=== PATIENT | male | born 1975 | race Caucasian/White ===

== ENCOUNTER 2022-12-02 06:14 | Outpatient (REF) | payer OTHER, SELFPAY ==
[2022-12-02 11:26] LABS: MANUAL DIFF FLAG NO
[2022-12-02 11:52] LABS: Basophils Percent Auto 0.4 % (0-2); Eosinophils Absolute Auto 0.1 X10*3/uL (0.0-0.4); Eosinophils Percent Auto 1.6 % (0-4); Hematocrit 45.9 % (42.0-52.0); Hemoglobin 15.7 g/dl (14.0-18.0); Imm Gran Abs Auto 0.01 X10*3/uL (0.00-0.03); Imm Gran Pct Auto 0.1 % (0.0-0.4); Lymphocytes Percent Auto 44.8 % (20-40); Mean Corpuscular HGB Conc 34.2 g/dl (31.0-36.0); Mean Corpuscular Hemoglobin 29.6 pg (27.0-33.0); Mean Corpuscular Volume 86.4 fL (80.0-98.0); Mean Platelet Volume 9.5 fL (9.4-12.4); Monocytes Absolute Auto 0.6 X10*3/uL (0.1-1.2); Monocytes Percent Auto 9.3 % (2-11); Neutrophils Absolute Auto 2.9 x10*3/uL (2.0-8.3); Neutrophils Percent Auto 43.8 % (45-73); Platelet Count 250 X10*3/uL (160-400); Red Blood Count 5.31 X10*6/uL (4.60-5.80); Red Cell Distribution Width 12.2 % (11.0-16.0); White Blood Count 6.7 X10*3/uL (4.8-10.8)
[2022-12-02 12:45] LABS: Alanine Aminotransferase 27 U/L (0-40); Albumin Level 4.4 g/dL (3.5-5.0); Alkaline Phosphatase 66 U/L (39-117); Anion Gap 11 (12-20); Aspartate Amino Transferase 19 U/L (5-37); Bilirubin Total 0.9 mg/dL (0.0-1.0); Blood Urea Nitrogen 16 mg/dL (9-16); Calcium 9.1 mg/dL (8.4-10.2); Carbon Dioxide 27 mmol/L (22-29); Chloride 107 mmol/L (96-108); Cholesterol 236 mg/dL; Estimated Glomerular Filt Rate > 60; Glucose Fasting 98 mg/dL (60-99); HDL Cholesterol 40 mg/dL; LDL Cholesterol Calculated 175 mg/dl; Potassium 4.2 mmol/L (3.3-5.1); Sodium 141 mmol/L (135-145); TSH reflex Free T4 1.94 uIU/mL (0.32-4.0); Total Protein 7.2 g/dL (6.5-8.0); Triglycerides 107 mg/dL
== END 2022-12-02 06:15 | disposition home or self-care (01) ==
LOC: HO.HMGCLDS 06:14
PROVIDERS: PCP Internal Medicine; Visit Provider Internal Medicine
DX: Z00.00 Encounter for general adult medical examination without abnormal findings (principal); E78.5 Hyperlipidemia, unspecified; I10 Essential (primary) hypertension
CPT/HCPCS: 36415; 80053; 80061; 84443; 85025

== ENCOUNTER 2022-12-03 09:01 | Outpatient (REF) | payer OTHER, SELFPAY ==
--- NOTE | ~2022-12-03 | XR_ITS ---
EXAMINATION: XR LUMBOSACRAL SPINE CLINICAL INFORMATION: Radiculopathy lumbar region. COMPARISON: None TECHNIQUE: Three views of the lumbosacral spine. FINDINGS: There is normal lumbar lordosis. The vertebral heights and alignment is normal. There is loss of L5-S1 disc height. Rest of the disc heights are normal. No visible acute fracture, dislocation or subluxation seen. No lytic or sclerotic process seen. The paravertebral soft tissues are normal. XR/XR lumbar spine 2-3V IMPRESSION: Degenerative disc changes L5-S1 disc level. No visible acute fracture, dislocation or lytic process seen.
== END 2022-12-03 09:02 | disposition home or self-care (01) ==
LOC: HO.HMGCX 09:01
PROVIDERS: PCP Internal Medicine; Visit Provider Internal Medicine
DX: M54.16 Radiculopathy, lumbar region (principal)
CPT/HCPCS: 72100

== ENCOUNTER 2022-12-28 09:42 | Outpatient (REF) | payer OTHER, SELFPAY ==
[2022-12-28 12:45] LABS: Anion Gap 14 (12-20); Blood Urea Nitrogen 15 mg/dL (9-16); Calcium 9.5 mg/dL (8.4-10.2); Carbon Dioxide 26 mmol/L (22-29); Chloride 106 mmol/L (96-108); Estimated Glomerular Filt Rate > 60; Glucose Random 98 mg/dL (60-115); Magnesium 2.2 mg/dL (1.6-2.6); Potassium 4.8 mmol/L (3.3-5.1); Sodium 141 mmol/L (135-145)
[2022-12-28 13:03] LABS: TSH reflex Free T4 1.08 uIU/mL (0.32-4.0)
[2023-01-04 17:08] LABS: Cortisol, Free 0.29 mcg/dL
[2023-01-07 17:34] LABS: Aldosterone/Renin Ratio 10.8 Ratio (0.9-28.9); Plasma Renin Activity 0.74 ng/mL/h (0.25-5.82)
== END 2022-12-28 09:43 | disposition home or self-care (01) ==
LOC: HO.HMGCLDS 09:42
PROVIDERS: PCP Internal Medicine; Visit Provider Internal Medicine
DX: E78.5 Hyperlipidemia, unspecified (principal); I10 Essential (primary) hypertension
CPT/HCPCS: 36415; 80048; 82088; 82530; 83735; 84443

== ENCOUNTER → 2023-01-16 07:50 | Outpatient (REF) | payer OTHER, SELFPAY ==
--- NOTE | 2023-01-16 07:57 | HM_ITS ---
* Total monitoring time 3 days. * Underlying rhythm is sinus. Average ventricular rate 79/Min. Range 49 to 109/Min. * Frequent ventricular ectopy. Dorsey of 14%. Occasional bigeminy and trigeminy. 3 morphologies. One run of 4 beats. * Rare supraventricular ectopy. * No significant pauses or AV blocks. * No patient markers or events in diary. MTDD
--- NOTE | 2023-01-16 07:57 | CA_ITS ---
Transthoracic Echocardiogram Patient (Last, First, Middle): Phillip Valle S Gender: Male Date of : 1975 Age: 47 Procedure Date: 01/16/2023 Procedure Type: Transthoracic Echocardiogram Location: OP Height: 180.34 cm Weight: 104.33 kg BSA: 2.24 m2 Heart Rate: bpm BP: 130 / 92 mmHg Pyridine Operator: ANA M Referring MD: Krystin Barajas MD [facility] Coordinator: Jarad Carballo MD Symptoms: G47.30 - Sleep apnea, unspecified Study Quality: Adequate ECG Rhythm: Sinus Conclusions: - Essentially normal study Findings Left Ventricle Normal left ventricular size, thickness, and systolic function. The visually estimated ejection fraction is between 55-60%. Diastolic function is normal for age. Peak GLS is -18.9%, within normal limits. Right Ventricle Normal right ventricular cavity size and systolic function. Atria The left atrium is mildly dilated. Interatrial shunt cannot be excluded. The right atrium is normal in size. Aortic Valve The aortic valve structure and function is likely normal. There is no aortic valve stenosis. There is no aortic valve regurgitation. Mitral Valve Normal mitral valve structure and function. There is trace mitral valve regurgitation. There is no mitral valve stenosis. Pulmonic Valve The pulmonic valve was not well visualized. Tricuspid Valve Normal tricuspid valve structure. There is trace tricuspid valve regurgitation. The right ventricular systolic pressure is normal. The right ventricular systolic pressure is 25 mmHg. Normal right atrial pressure. There is no evidence of pulmonary hypertension. Great Vessels All visible segments of the aorta are normal in size. The pulmonary artery was not well visualized. Venous The inferior vena cava is normal in size and collapses greater than 50% with inspiration. Pericardium/Pleural There is no evidence of pericardial effusion. Prior Study Comparison No prior study available for comparison. Measurements 2D Linear Measurements IVSd: 0.96 0.6-0.9/0.6-1.0 cm LVIDd: 5.69 3.9-5.3/4.2-5.9 cm LVIDd Index: 2.54 2.4-3.2/2.2-3.1 cm/m2 LVIDs: 3.45 2.0-3.6 cm LVPWd: 0.88 0.7-1.1 cm LA Diam: 3.80 2.7-3.8/3.0-4.0 cm LAIDs Index: 1.70 1.5-2.3 cm/m2 LV Mass: 253.33 67-162/88-224 g LV Mass Index: 113.09 43-95/49-115 g/m2 LVOT Diam: 2.10 3.0+(-)1.3 cm 2D Systolic Function EF 4C: 58.00 >55% EF 2C: 50.10 >55% Mitral Valve MV Pk E: 0.93 MV PK A: 0.75 MV Decel Time: 168.00 E/A: 1.30 E'Lateral: 12.10 E'Medial: 8.49 E/E' Med: 11.00 E/E' Lat: 7.70 PHT: 49.00 MVA PHT: 4.49 Decel [place]: 5.55 Aortic Valve AoV Pk Jamal: 1.23 AoV Mn Jamal: 0.86 AoV VTI: 0.28 AoV Pk Grad: 6.00 Aov Mn Grad: 3.00 JASPER Cont.VTI: 3.01 LVOT LVOT Pk Jamal: 1.14 LVOT Mn Jamal: 0.70 LVOT VTI: 0.24 LVOT Pk Grad: 5.00 LVOT Mn Grad: 2.00 LVOT Diam: 2.10 LVOT Area: 3.46 Diastolic Function MV Pk E: 0.93 MV Pk A: 0.75 E/A: 1.30 E'Medial: 8.49 E/E' Med: 11.00 E' Laterial: 12.10 E/E' Lat: 7.70 Right Ventricle TAPSE (mm): 21.90 TVS' Jamal: 12.30 Tricuspid Valve TR Pk Jamal: 2.04 TR Pk Grad: 17.00 RA Press: 8.00 RVSP: 25.00 Great Vessels Aorta Sinus of Valsalva: 3.74 2.0-3.[address] [place]: 2.94 1.7-3.4 cm Ao Asc: 3.50 2.1-3.4 cm Updated in Other Vendor System with Status of Final Jarad Carballo MD electronically signed on 01/16/2023 4:29:45 PM with status of Final
== END ==
LOC: HO.CARD 07:50
PROVIDERS: PCP Internal Medicine; Visit Provider Internal Medicine
DX: I10 Essential (primary) hypertension (principal); I49.9 Cardiac arrhythmia, unspecified
CPT/HCPCS: 93225; 93306; 93356

== ENCOUNTER 2023-03-22 06:03 | Outpatient (REF) | payer OTHER, SELFPAY ==
[2023-03-22 11:57] LABS: Alanine Aminotransferase 32 U/L (0-40); Albumin Level 4.3 g/dL (3.5-5.0); Alkaline Phosphatase 62 U/L (39-117); Anion Gap 13 (12-20); Aspartate Amino Transferase 23 U/L (5-37); Bilirubin Total 1.2 mg/dL (0.0-1.0); Blood Urea Nitrogen 15 mg/dL (9-16); Calcium 9.5 mg/dL (8.4-10.2); Carbon Dioxide 26 mmol/L (22-29); Chloride 105 mmol/L (96-108); Cholesterol 224 mg/dL; Estimated Glomerular Filt Rate > 60; Glucose Fasting 82 mg/dL (60-99); HDL Cholesterol 41 mg/dL; LDL Cholesterol Calculated 162 mg/dl; Sodium 140 mmol/L (135-145); Total Protein 7.5 g/dL (6.5-8.0); Triglycerides 109 mg/dL
== END 2023-03-22 06:04 | disposition home or self-care (01) ==
LOC: HO.HMGCLDS 06:03
PROVIDERS: PCP Internal Medicine; Visit Provider Internal Medicine
DX: E78.5 Hyperlipidemia, unspecified (principal); I10 Essential (primary) hypertension
CPT/HCPCS: 36415; 80053; 80061

== ENCOUNTER 2023-09-29 06:24 | Outpatient (REF) | payer OTHER, SELFPAY ==
--- NOTE | ~2023-09-29 | XR_ITS ---
EXAMINATION: XR KNEE, LEFT CLINICAL INFORMATION: Left knee pain. COMPARISON: None available. TECHNIQUE: Four views of the left knee. FINDINGS: There is no evidence of acute fracture or dislocation of the left knee. There is a left knee effusion present. Joint spaces are maintained. There appears to be some edema about the patella tendon. XR/XR knee LT 4V IMPRESSION: No bony abnormality of the left knee identified. Left knee effusion.
[2023-09-29 11:35] LABS: Alanine Aminotransferase 30 U/L (0-40); Albumin Level 4.4 g/dL (3.5-5.0); Alkaline Phosphatase 57 U/L (39-117); Anion Gap 10 (12-20); Aspartate Amino Transferase 24 U/L (5-37); Bilirubin Total 0.8 mg/dL (0.0-1.0); Blood Urea Nitrogen 18 mg/dL (9-16); Calcium 9.2 mg/dL (8.4-10.2); Carbon Dioxide 27 mmol/L (22-29); Chloride 107 mmol/L (96-108); Cholesterol 221 mg/dL (<200); Estimated Glomerular Filt Rate > 60; Glucose Fasting 96 mg/dL (60-99); HDL Cholesterol 36 mg/dL (>40); LDL Cholesterol Calculated 157 mg/dL (<100); Potassium 4.3 mmol/L (3.3-5.1); Sodium 140 mmol/L (135-145); Total Protein 7.7 g/dL (6.5-8.0); Triglycerides 140 mg/dL (<150)
== END 2023-09-29 06:25 | disposition home or self-care (01) ==
LOC: HO.HMGCLDS 06:24
PROVIDERS: PCP Internal Medicine; Visit Provider Internal Medicine
DX: I49.9 Cardiac arrhythmia, unspecified (principal); E78.5 Hyperlipidemia, unspecified; I10 Essential (primary) hypertension; M54.30 Sciatica, unspecified side; M25.562 Pain in left knee
CPT/HCPCS: 36415; 73564; 80053; 80061

== ENCOUNTER 2023-09-29 09:51 | Outpatient (AMB) | payer OTHER, SELFPAY ==
[2023-09-29 09:54] VITALS: BP 140/86; PULSE 76; O2SAT 98; BMI 32.7
--- NOTE | 2023-09-29 09:54 | MHC.PC.OV ---
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: No Accompanied by: Self / Same As Patient Allergies amoxicillin or augmentin Allergy (Unknown, Uncoded 09/29/23 09:55) Rash Medication List - Last Reconciled 09/29/23 by Krystin Barajas MD metoprolol succinate ER 25 mg PO DAILY olmesartan 20 mg PO DAILY Tobacco use date assessed: 09/29/23 Dental Screening Dental Screen Date: 09/29/23 Did you have a dental visit in the last 12 months?: Yes Did you have a dental problem in the last 6 months where you did not have access to dental care?: No Was dental information given to patient?: Patient has dentist HPI 6m htn HPI Details Pt presents for f/u HTN. Pt c/o L knee pain behind for 3 weeks. Pt c/o persistent lower back pain radiating RLE and right lower extremity weakness and decreased calf muscle bulk. PFSH Family History Father Hypertension Mother Dementia Alzheimer disease Social History Housing: House Patient Tobacco Use Status: Never used Tobacco e-Cigarette/Vaping Use: Never Used Current occupational status: employed Cognitive needs: No Hearing needs: No Vision needs: No Questionnaire Thrive Questionnaire Date Thrive assessed: 11/23/22 HENRI-7 AMB Questionnaire HENRI-7 Date HENRI - 7 assessed: 11/23/22 Source: Developed by Drs. Jaylan Whiteside, Jany Bartlett, Arnol Good and colleagues, with an educational greg from [employer]. Review of Systems Const All systems reviewed & are unremarkable except as noted in HPI and below Reports no additional complaints Eyes Reports no additional complaints ENT Reports no additional complaints Card Reports no additional complaints Resp Reports no additional complaints GI Reports no additional complaints Reports no additional complaints Physical exam (Primary Care) Vital Signs: Last Vital Signs Pulse 76 09/29/23 09:54 BP 140/86 H 09/29/23 09:54 Pulse Ox 98 09/29/23 09:54 Oxygen Delivery Method Room Air 09/29/23 09:54 BMI result Body Mass Index 32.7 Tobacco/Smoking Status: Tobacco use Status Tobacco use date assessed 09/29/23 09/29/23 09:55 Patient Tobacco Use Status Never used Tobacco 09/29/23 09:55 e-Cigarette/Vaping Use Never Used 09/29/23 09:55 Thrive Assessment: Date of Thrive Assessment Date Thrive assessed 11/23/22 09/29/23 09:55 Const General: no acute distress HENMT General nose exam: Normal external nose present Throat: Yes posterior oropharynx normal Neck Neck: Yes no lymphadenopathy and Yes supple Resp Effort & Inspection: normal respiratory effort Auscultation: clear to auscultation bilaterally Cardio Rhythm: regular rhythm Heart sounds: S1 normal heart sound present and S2 normal heart sound present GI Inspection: Yes normal to inspection Extrem Other: Motor strength 4 to 5/5 right distal lower extremity, 5/5 for right proximal lower extremity, there is a smaller right calf circumference comparing to left, deep tendon reflexes +1 bilaterally. Left knee with full range of motion no joint tenderness or sore Assessment and Plan Assessment & Plan (1) Sciatica: Code(s): M54.30 - Sciatica, unspecified side Plan: For chronic sciatica with right lower extremity weakness and decrease muscle bulk MRI of lumbar spine and EMG will be obtained. Patient will be referred to neurology (2) Right leg weakness: Code(s): R29.898 - Other symptoms and signs involving the musculoskeletal system (3) Hyperlipidemia: Code(s): E78.5 - Hyperlipidemia, unspecified Plan: Low cholesterol diet (4) HTN (hypertension): Code(s): I10 - Essential (primary) hypertension Plan: Increase olmesartan to 40 mg a day (5) Knee pain, left: Code(s): M25.562 - Pain in left knee Plan: Check x-ray and PT was recommended but patient declined Orders: Orders NE electromyogram (EMG) Today R29.898 - Other symptoms and signs involving the musculoskeletal system MR lumbar spine wo con Today M54.30 - Sciatica, unspecified side Comprehensive [place]. Panel Fast 6 Weeks I10 - Essential (primary) hypertension Referrals Neurology Referral R29.898 - Other symptoms and signs involving the musculoskeletal system Medications: New olmesartan 40 mg PO DAILY 90 tabs 0RF Discontinued olmesartan Discontinued Reason: Doctor's Order 20 mg PO DAILY 90 tabs 3RF Coding Level of Care Code Est Pt Level 4 (59758) Diagnoses Sciatica M54.30 Right leg weakness R29.898 Hyperlipidemia E78.5 HTN (hypertension) I10 Knee pain, left M25.562
== END 2023-09-29 11:39 | disposition home or self-care (01) ==
PROVIDERS: PCP Internal Medicine; Visit Provider Internal Medicine
DX: M54.30 Sciatica, unspecified side (principal); R29.898 Other symptoms and signs involving the musculoskeletal system; E78.5 Hyperlipidemia, unspecified; I10 Essential (primary) hypertension; M25.562 Pain in left knee
CPT/HCPCS: 99214

== ENCOUNTER 2023-10-04 09:32 | Outpatient (AMB) | payer OTHER, SELFPAY ==
[2023-10-04 10:36] VITALS: BP 170/100; PULSE 99; TEMP 36.3; O2SAT 98; BMI 33.9
--- NOTE | 2023-10-04 10:36 | MHC.OFFWIV ---
Intake Vital Signs 10/04/23 10:36 Height 5 ft 10.8 in Weight 242 lb BMI 33.9 BP 170/100 H Blood Pressure Location Lt brachial Position Sitting Pulse 99 Pulse Source Pulse Oximeter Temp 97.4 F Temp Source Temporal Artery Scan Pulse Oximetry (%) 98 Oxygen Delivery Method Room Air Intake Visit Reasons: EP Lft foot/ankle swollen [id number] Intake Note: pt is here today for lft foot ankle swollen started 3 weeks ago Patient Tobacco Use Status: Never used Tobacco Allergies amoxicillin or augmentin Allergy (Unknown, Uncoded 09/29/23 09:55) Rash Do you need a note to return to daycare/school/sports/work: Yes HPI EP Lft foot/ankle swollen [id number] HPI Details This patient presents today with left calf swelling and pain. He reports this started about 2-3 weeks ago just with pain behind his left knee. Now he reports it has worsened, and his left calf is swollen and tight. Denies any injury to area. No recent travel. He saw his PCP on 09/29 and at that time only had the posterior left knee pain - XR showed a knee effusion. Denies any shortness of breath. [facility] Family History Father Hypertension Mother Dementia Alzheimer disease Social History Housing: House Patient Tobacco Use Status: Never used Tobacco e-Cigarette/Vaping Use: Never Used Current occupational status: employed Cognitive needs: No Hearing needs: No Vision needs: No Review of Systems Const All systems reviewed & are unremarkable except as noted in HPI and below Physical Exam Vital Signs: Last Vital Signs Temp 97.4 F 10/04/23 10:36 Pulse 99 10/04/23 10:36 BP 170/100 H 10/04/23 10:36 Pulse Ox 98 10/04/23 10:36 Oxygen Delivery Method Room Air 10/04/23 10:36 BMI result Body Mass Index 33.9 Const General: cooperative and no acute distress Resp Effort & Inspection: normal respiratory effort Auscultation: clear to auscultation bilaterally Cardio Palpation: normal PMI Rate: regular rate Rhythm: regular rhythm Extrem Other: Left calf in tight and swollen. Calf circumference on left is 46cm, compared to 40cm on the right. Homans sign is positive. Tenderness to palpation. No excessive warmth or redness. Distal pedal/post tibial pulses present/strong. Normal cap refill. No distal edema. Psych Appearance: grossly normal Mental Status: mental status grossly normal Speech and movement: Normal speech and movement present Assessment & Plan Assessment & Plan (1) Pain and swelling of left lower leg: Code(s): M79.662 - Pain in left lower leg; M79.89 - Other specified soft tissue disorders Plan: Left calf enlarged, tight, and tender to palpation. Venous duplex US ordered of the LE. US results: No DVT, however there is a complex fluid collection in the upper calf with echogenic and hypoechoic area which is nonvascular and may be reflective of a muscular hematoma measuring approximately 3.8 x 10.0 x 6.5 cm. Recommendations are to repeat u/s in 5-7 days in symptoms persist. I have informed patient of above results and he will f/u with [place] [facility] or PCP as needed if symptoms persist. In the interim, I will start patient on antiinflammatories and muscle relaxers for this. We reviewed indications, use, possible s/e of medications. If he develops worsening pain, swelling, or develops other symptoms, he should go to the emergency department for further evaluation. He verbalizes understanding and agrees to plan. Orders: Orders US venous duplex LE LT Today M79.662 - Pain in left lower leg, M79.89 - Other specified soft tissue disorders Medications: New cyclobenzaprine 10 mg PO TID 5 days PRN 15 tabs 0RF muscle spasm meloxicam 15 mg PO DAILY 7 days 7 tabs 0RF M79.662 - Pain in left lower leg, M79.89 - Other specified soft tissue disorders Coding Level of Care Code Est Pt Level 3 (85740) Diagnoses Pain and swelling of left lower leg M79.662; M79.89
== END 2023-10-04 11:13 | disposition home or self-care (01) ==
PROVIDERS: PCP Internal Medicine; Visit Provider Nurse Practitioner Family
DX: M79.662 Pain in left lower leg (principal); M79.89 Other specified soft tissue disorders
CPT/HCPCS: 99213

== ENCOUNTER 2023-10-04 11:21 | Outpatient (REF) | payer OTHER, SELFPAY ==
--- NOTE | ~2023-10-04 | US_ITS ---
EXAMINATION: US VENOUS ULTRASOUND WITH DOPPLER LOWER EXTREMITY, LEFT CLINICAL INFORMATION: Pain COMPARISON: None available. TECHNIQUE: Ultrasound of the deep veins is performed from the hip to the calf with compression sonography and color and pulse Doppler assessment. Spectral analysis with color-flow imaging is performed. FINDINGS: There is normal venous compression and respiratory variation and augmented flow. The visualized common femoral vein, superficial femoral vein, profunda femoral vein, popliteal vein, and the trifurcation region shows no evidence of deep venous thrombosis. There is no significant popliteal fossa cyst. The left peroneal vein was not well seen due to calf swelling. Some soft tissue swelling and edema was noted in the region of the popliteal fossa. There is a complex fluid collection in the upper calf with echogenic and hypoechoic area which is nonvascular and may be reflective of a muscular hematoma measuring approximately 3.8 x 10.0 x 6.5 cm. If the patient's symptoms persist, followup ultrasound in 5 days 7 days might be of value to exclude proximal propagation from a non-visualized calf vein. US/US venous duplex LE LT IMPRESSION: No DVT demonstrated in the left lower extremity. Apparent calf hematoma.
== END 2023-10-04 11:22 | disposition home or self-care (01) ==
LOC: HO.HMGCX 11:21
PROVIDERS: PCP Internal Medicine; Visit Provider Internal Medicine
DX: M79.662 Pain in left lower leg (principal); M79.89 Other specified soft tissue disorders
CPT/HCPCS: 93971

== ENCOUNTER 2023-10-12 07:50 | Outpatient (REF) | payer OTHER, SELFPAY | END 2023-10-12 07:51 | disposition home or self-care (01) | LOC: HO.NEURO 07:50 | PROVIDERS: PCP Internal Medicine; Visit Provider Internal Medicine | DX: Z13.89 Encounter for screening for other disorder (principal) ==

== ENCOUNTER 2023-10-23 10:00 | Outpatient (REF) | payer OTHER, SELFPAY ==
--- NOTE | ~2023-10-23 | XR_ITS ---
EXAMINATION: XR KNEE AP STANDING CLINICAL INFORMATION: Left knee pain COMPARISON: 09/29/2023 TECHNIQUE: AP bilateral standing view of the knees and left sunrise view FINDINGS: On standing knee view, knee joints are symmetrical in position. Bilateral moderate medial knee joint narrowings, left greater than right. No left patellofemoral narrowing. No fracture or dislocation recognized. XR/XR knee LT 1V IMPRESSION: Degenerative changes. No acute bony pathology.
--- NOTE | ~2023-10-23 | XR_ITS ---
EXAMINATION: XR KNEE AP STANDING CLINICAL INFORMATION: Left knee pain COMPARISON: 09/29/2023 TECHNIQUE: AP bilateral standing view of the knees and left sunrise view FINDINGS: On standing knee view, knee joints are symmetrical in position. Bilateral moderate medial knee joint narrowings, left greater than right. No left patellofemoral narrowing. No fracture or dislocation recognized. XR/XR knee standing BI IMPRESSION: Degenerative changes. No acute bony pathology.
== END 2023-10-23 10:01 | disposition home or self-care (01) ==
LOC: HO.HOSX 10:00
PROVIDERS: Visit Provider Physician Assistant
DX: S80.12XA Contusion of left lower leg, initial encounter (principal); M25.561 Pain in right knee; R60.0 Localized edema
CPT/HCPCS: 73560; 73565; 99202

== ENCOUNTER 2023-10-23 10:14 | Outpatient (AMB) | payer OTHER, SELFPAY ==
--- NOTE | 2023-10-23 10:32 | A.OFFVIS_ITS ---
Intake Intake Visit Reasons: BLOOD TYPER-pain in the left knee Intake Note: Phillip connolly 48 year old male presents today as a new patient for an evaluation of left knee pain. Patient reports pain and swelling started at the end of September. States pain located at the posterior aspect of knee that radiates down to his calf. His swelling has improved however swelling is still present. He was seen at walk in clinic where an US was ordered. Denies injury. Allergies amoxicillin or augmentin Allergy (Unknown, Uncoded 09/29/23 09:55) Rash HPI BLOOD TYPER-pain in the left knee HPI Details 48-year-old male who presents to the off ice today for evaluation of left knee pain since October 04 2023. He states he has pain and swelling at the posterior aspect of his knee which radiates down to his calf. He also c/o a sharp pain with bending down. He was seen at walk in clinic where US was ordered and he was prescribed meloxicam and a cream which he discontinued to take. He uses ibuprofen and icing for his knee. 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 Cognitive needs: No Hearing needs: No Vision needs: No Review of Systems Const All systems reviewed & are unremarkable except as noted in HPI and below Physical Exam Const General: cooperative, healthy appearing, comfortable, no acute distress, well developed and alert Orientation/consciousness: patient oriented x3 HEENT Head: Yes normal to inspection, Yes normocephalic and Yes atraumatic Eyes General: appearance normal, both eyes and all related structures Resp Effort & Inspection: normal respiratory effort and able to speak in complete sentences Cardio Rate: regular rate Peripheral pulses: Peripheral pulses 2+ throughout GI Palpation (GI): Soft to palpation Skin Lesions: no lesions Rashes: no rashes Neuro General: patient oriented x3 Extrem Other: LLE: Hematoma present on the left medial side of gastroc. No fluctuance. No tenderness to palpation. No muscle deformity. No ecchymosis. NVI. Assessment & Plan Assessment & Plan (1) Hematoma of lower leg: Code(s): S80.10XA - Contusion of unspecified lower leg, initial encounter Plan We discussed the findings on the US with him today which is significant for muscular hematoma of 3 x 10 x 6 cm. He will also begin physical therapy to work on some ROM, stretching and edema control techniques. He will resume activities as tolerated. I did explain that this may take up 6-8 weeks for full recovery and if symptoms persist or worsens, patient will contact the office, otherwise follow-up as needed. Orders: Orders XR knee standing BI Today M25.561 - Pain in right knee, M25.562 - Pain in left knee XR knee LT 1V Today M25.562 - Pain in left knee PT Evaluation and Treatment Today S80.10XA - Contusion of unspecified lower leg, initial encounter Patient Instructions: Scribed for Ricky Florse PA-C, by Won Stanley, medical grade shoemaker, on 10/23/2023 at 10:30 AM EST. I, Ricky Flores PA-C, have personally reviewed and agree with the information entered by the scribe. Coding Level of Care Code New Pt Level 3 (24511) Diagnoses Hematoma of lower leg S80.10XA
== END 2023-10-23 11:13 | disposition home or self-care (01) ==
PROVIDERS: PCP Internal Medicine; Visit Provider Physician Assistant
DX: S80.12XA Contusion of left lower leg, initial encounter (principal)
CPT/HCPCS: 99203

== ENCOUNTER 2023-11-30 07:31 | Outpatient (AMB) | payer OTHER, SELFPAY ==
[2023-11-30 07:33] VITALS: BP 130/80; PULSE 86; O2SAT 98; BMI 32.3
--- NOTE | 2023-11-30 07:33 | A.OFFPC_ITS ---
Vital Signs 11/30/23 07:33 Height 5 ft 10.8 in Weight 230 lb BMI 32.3 BP 130/80 Blood Pressure Location Lt brachial Position Sitting Pulse 86 Pulse Source Pulse Oximeter Pulse Oximetry (%) 98 Oxygen Delivery Method Room Air Intake Visit Reasons: Annual PE Intake Note: Pt is here today for PE. Allergies amoxicillin or augmentin Allergy (Unknown, Uncoded 11/30/23 07:51) Rash Tobacco use date assessed: 11/30/23 Dental Screening Dental Screen Date: 11/30/23 Did you have a dental visit in the last 12 months?: Yes Did you have a dental problem in the last 6 months where you did not have access to dental care?: No Was dental information given to patient?: Patient has dentist HPI Annual PE HPI Details Pt presents for PE. Pt developed L calf swelling 2 months ago and went to ER. US was c/w with hematoma and swelling is getting better. 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 1. Little interest or pleasure in doing things: not at all 2. Feeling down, depressed, or hopeless: not at all 3. Trouble falling or staying asleep, or sleeping too much: not at all 4. Feeling tired or having little energy: not at all 5. Poor appetite or overeating: not at all 6. Feeling bad about yourself - or that you are a failure or have let yourself or your family down: not at all 7. Trouble concentrating on things, such as reading the newspaper or watching t elevision: not at all 8. Moving or speaking so slowly that other people could have noticed. Or the opposite - being so fidgety or restless that you have been moving around a lot more than usual: not at all 9. Thoughts that you would be better off or of hurting yourself in some way: not at all Total score: 0 Depression Screening Interpretation: Negative Depression Screening Done: Yes Source: Developed by Drs. Jaylan Whiteside, Jany Bartlett, Arnol Good and colleagues, with an educational greg from [employer]. Thrive Questionnaire Date Thrive assessed: 11/30/23 I am a: Patient What is your living situation today?: I have a steady place to live Within the past 12 months, did the food you bought not last and you didn't have the money to get more?: Never true Within the past 12 months, did you worry whether your food would run out before you got money to buy more?: Never true Do you have trouble paying for medicines?: No Do you have trouble getting transportation to medical appointments?: No Do you have trouble paying your heating and electricity bill?: No Do you have trouble taking care of your child, family member or friend?: No Do you have trouble with day-to-day activities such as bathing, preparing meals, shopping, managing finances, etc.?: No Are you currently unemployed and looking for a job?: No Are you interested in more education?: No Please select the resources that you would like help with: None THRIVE Score: 0 AUDIT C Alcohol Use Questionnaire (AUDIT-C) 1. How often do you have a drink containing alcohol?: Never 3. How often do you have six or more drinks on one occasion?: Never Total Score: 0 HENRI-7 AMB Questionnaire HENRI-7 Date HENRI - 7 assessed: 11/30/23 Feeling nervous, anxious, or on edge: 0 = Not at all Not being able to stop or control worryin = Not at all Worrying too much about different things: 0 = Not at all Trouble relaxin = Not at all Being so restless that it is hard to sit still: 0 = Not at all Becoming easily annoyed or irritable: 0 = Not at all Feeling afraid as if something awful might happen: 0 = Not at all Total HENRI-7 score (0-4 normal; 5-9 mild; 10-14 moderate; 15-21 severe): 0 Source: Developed by Jany Little B.W. Dhruv, Arnol Good and colleagues, with an educational greg from [employer]. Review of Systems Const All systems reviewed & are unremarkable except as noted in HPI and below Reports no additional complaints Eyes Reports no additional complaints ENT Reports no additional complaints Card Reports no additional complaints Resp Reports no additional complaints GI Reports no additional complaints Reports no additional complaints Physical exam (Primary Care) Vital Signs: Last Vital Signs Pulse 86 11/30/23 07:33 BP 130/80 11/30/23 07:33 Pulse Ox 98 11/30/23 07:33 Oxygen Delivery Method Room Air 11/30/23 07:33 BMI result Body Mass Index 32.3 Tobacco/Smoking Status: Tobacco use Status Tobacco use date assessed 11/30/23 11/30/23 07:54 Patient Tobacco Use Status Never used Tobacco 11/30/23 07:34 e-Cigarette/Vaping Use Never Used 11/30/23 07:34 PHQ-9: PHQ-9 Score PHQ-9: Total score 0 11/30/23 07:57 Depression Screening Interpretation: Negative Thrive Assessment: Date of Thrive Assessment Date Thrive assessed 11/30/23 11/30/23 07:57 Const General: no acute distress HENMT Head: Yes normal to inspection Ears: hearing grossly normal bilaterally General nose exam: Normal external nose present Throat: Yes posterior oropharynx normal Eyes General: appearance normal, both eyes and all related structures Neck Neck: Yes no lymphadenopathy and Yes supple Resp Effort & Inspection: normal respiratory effort Auscultation: clear to auscultation bilaterally Cardio Rhythm: regular rhythm Heart sounds: S1 normal heart sound present and S2 normal heart sound present GI Inspection: Yes normal to inspection Palpation (GI): Soft to palpation Percussion: Yes normal to percussion Auscultation: normal bowel sounds Extrem Other: There is about 10 x 6 cm subcutaneous swelling in the left calf area, no erythema warmth or tenderness Assessment and Plan Assessment & Plan (1) Hematoma of lower leg: Code(s): S80.10XA - Contusion of unspecified lower leg, initial encounter Plan: Continue supportive care, repeat ultrasound to evaluate (2) Hyperlipidemia: Code(s): E78.5 - Hyperlipidemia, unspecified Plan: Low-cholesterol diet increasing fish oil supplement regular physical activity discussed with the patient. Follow-up in 6 months with a fasting labs before (3) HTN (hypertension): Code(s): I10 - Essential (primary) hypertension Plan: Continue current medications (4) Annual physical exam: Code(s): Z00.00 - Encounter for general adult medical examination without abnormal findings Plan: Well-balanced diet regular exercise weight loss discussed with the patient. Follow-up in 6 months with a fasting labs before Orders: Orders US venous duplex LE LT Today S80.10XA - Contusion of unspecified lower leg, initial encounter Lipid Panel 6 Months E78.5 - Hyperlipidemia, unspecified, I10 - Essential (primary) hypertension PSA,Total (Free>4and<10) 6 Months E78.5 - Hyperlipidemia, unspecified, I10 - Essential (primary) hypertension Comprehensive [place]. Panel Fast 6 Months E78.5 - Hyperlipidemia, unspecified, I10 - Essential (primary) hypertension Coding Level of Care Code Est Pt Prev Care 40-64y(56694) Diagnoses Hematoma of lower leg S80.10XA Hyperlipidemia E78.5 HTN (hypertension) I10 Annual physical exam Z00.00
== END 2023-11-30 10:21 | disposition home or self-care (01) ==
PROVIDERS: PCP Internal Medicine; Visit Provider Internal Medicine
DX: S80.10XA Contusion of unspecified lower leg, initial encounter (principal); E78.5 Hyperlipidemia, unspecified; I10 Essential (primary) hypertension; Z00.00 Encounter for general adult medical examination without abnormal findings
CPT/HCPCS: 99396

== ENCOUNTER 2023-12-05 08:19 | Outpatient (REF) | payer OTHER, SELFPAY ==
--- NOTE | ~2023-12-05 | US_ITS ---
EXAMINATION: US EXTREMITY, NONVASCULAR CLINICAL INFORMATION: Follow up hematoma. COMPARISON: Ultrasound venous duplex 10/04/2003 left lower extremity. TECHNIQUE: Targeted ultrasound images were obtained by the merchandise stocker of the area of concern as indicated by the patient in the left proximal calf, medial posterior aspect. Radiologist was not in attendance. Images were later provided for interpretation. FINDINGS: There is a 7.4 x 3.0 x 4.0 cm complex fluid collection in the indicated area along the medial posterior proximal calf with mixed echogenic and hypoechoic areas. No internal vascularity demonstrated. This previously measured 3.8 x 10.0 x 6.5 cm on 10/04/2023 exam and may possibly represent a hematoma. US/US extremity nonvascular IMPRESSION: 7.4 x 3.0 x 4.0 cm complex fluid collection along the medial posterior proximal calf previously measured 3.8 x 10.0 x 6.5 cm on 10/04/2023 exam and may possibly represent a hematoma. Correlation with clinical exam recommended to determine further management.
== END 2023-12-05 08:20 | disposition home or self-care (01) ==
LOC: HO.US 08:19
PROVIDERS: PCP Internal Medicine; Visit Provider Internal Medicine
DX: S80.12XA Contusion of left lower leg, initial encounter (principal)
CPT/HCPCS: 76882

== ENCOUNTER 2024-05-27 06:16 | Outpatient (REF) | payer OTHER, SELFPAY ==
[2024-05-27 11:05] LABS: Alanine Aminotransferase 27 U/L (0-40); Albumin Level 4.2 g/dL (3.5-5.0); Alkaline Phosphatase 55 U/L (39-117); Anion Gap 11 (12-20); Aspartate Amino Transferase 21 U/L (5-37); Bilirubin Total 0.5 mg/dL (0.0-1.0); Blood Urea Nitrogen 14 mg/dL (9-16); Calcium 9.3 mg/dL (8.4-10.2); Carbon Dioxide 27 mmol/L (22-29); Chloride 105 mmol/L (96-108); Cholesterol 213 mg/dL (<200); Estimated Glomerular Filt Rate > 60; Glucose Fasting 94 mg/dL (60-99); HDL Cholesterol 50 mg/dL (>40); LDL Cholesterol Calculated 132 mg/dL (<100); Potassium 4.1 mmol/L (3.3-5.1); Sodium 139 mmol/L (135-145); Total Protein 7.3 g/dL (6.5-8.0); Triglycerides 159 mg/dL (<150)
[2024-05-27 11:25] LABS: PSA,Total (Free>4and<10) 0.61 ng/mL (0.00-4.00)
== END 2024-05-27 06:17 | disposition home or self-care (01) ==
LOC: HO.HMGCLDS 06:16
PROVIDERS: PCP Internal Medicine; Visit Provider Internal Medicine
DX: E78.5 Hyperlipidemia, unspecified (principal); I10 Essential (primary) hypertension
CPT/HCPCS: 36415; 80053; 80061; 84153

== ENCOUNTER 2024-05-28 07:33 | Outpatient (AMB) | payer OTHER, SELFPAY ==
--- NOTE | 2024-05-28 07:34 | MHC.PC.OV ---
Vital Signs 05/28/24 07:35 Height 5 ft 10.8 in Weight 225 lb BMI 31.6 BP 130/84 Blood Pressure Location Lt brachial Position Sitting Pulse 79 Pulse Source Pulse Oximeter Pulse Oximetry (%) 96 Oxygen Delivery Method Room Air Intake Visit Reasons: 6 month follow up Intake Note: Pt is here today for 6 months follow up visit. Allergies amoxicillin or augmentin Allergy (Unknown, Uncoded 05/28/24 07:36) Rash Medication List - Last Reconciled 05/28/24 by Krystin Barajas MD metoprolol succinate ER 50 mg PO DAILY olmesartan 40 mg PO DAILY Tobacco use date assessed: 05/28/24 Dental Screening Dental Screen Date: 05/28/24 Did you have a dental visit in the last 12 months?: Yes Did you have a dental problem in the last 6 months where you did not have access to dental care?: No Was dental information given to patient?: Patient has dentist HPI 6 month follow up HPI Details Pt presents for HTN and hyperlipid. 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 1. Little interest or pleasure in doing things: not at all 2. Feeling down, depressed, or hopeless: not at all 3. Trouble falling or staying asleep, or sleeping too much: not at all 4. Feeling tired or having little energy: not at all 5. Poor appetite or overeating: not at all 6. Feeling bad about yourself - or that you are a failure or have let yourself or your family down: not at all 7. Trouble concentrating on things, such as reading the newspaper or watching television: not at all 8. Moving or speaking so slowly that other people could have noticed. Or the opposite - being so fidgety or restless that you have been moving around a lot more than usual: not at all 9. Thoughts that you would be better off or of hurting yourself in some way: not at all Total score: 0 Depression Screening Interpretation: Negative Depression Screening Done: Yes 80733 - PHQ-9 Billing: Yes Source: Developed by Drs. Jaylan Whiteside, Jany Bartlett, Arnol Good and colleagues, with an educational greg from [employer]. Thrive Questionnaire Date Thrive assessed: 11/30/23 I am a: Patient What is your living situation today?: I choose not to answer this question Within the past 12 months, did the food you bought not last and you didn't have the money to get more?: I choose not to answer this question Within the past 12 months, did you worry whether your food would run out before you got money to buy more?: I choose not to answer this question Do you have trouble paying for medicines?: I choose not to answer this question Do you have trouble getting transportation to medical appointments?: I choose not to answer this question Do you have trouble paying your heating and electricity bill?: I choose not to answer this question Do you have trouble taking care of your child, family member or friend?: I choose not to answer this question Do you have trouble with day-to-day activities such as bathing, preparing meals, shopping, managing finances, etc.?: I choose not to answer this question Are you currently unemployed and looking for a job?: I choose not to answer this question Are you interested in more education?: I choose not to answer this question Please select the resources that you would like help with: None Currently or been in a relationship where the following occur: I choose not to answer THRIVE Score: 0 AUDIT C Alcohol Use Questionnaire (AUDIT-C) 1. How often do you have a drink containing alcohol?: Monthly or less 2. How many drinks containing alcohol do you have on a typical day when you are drinking?: 1 or 2 3. How often do you have six or more drinks on one occasion?: Never Total Score: 1 HENRI-7 AMB Questionnaire HENRI-7 Date HENRI - 7 assessed: 05/28/24 Feeling nervous, anxious, or on edge: 0 = Not at all Not being able to stop or control worryin = Nearly every day Worrying too much about different things: 0 = Not at all Trouble relaxin = Not at all Being so restless that it is hard to sit still: 0 = Not at all Becoming easily annoyed or irritable: 0 = Not at all Feeling afraid as if something awful might happen: 0 = Not at all Total HENRI-7 score (0-4 normal; 5-9 mild; 10-14 moderate; 15-21 severe): 3 Source: Developed by Drs. Jaylan Whiteside, Jany Bartlett, Arnol Good and colleagues, with an educational greg from [employer]. HENRI-7 Assessment Billing HENRI-7 Assessment Tool: HENRI-7 Assessment 63579 Review of Systems Const All systems reviewed & are unremarkable except as noted in HPI and below Eyes Reports no additional complaints ENT Reports no additional complaints Card Reports no additional complaints Resp Reports no additional complaints GI Reports no additional complaints Reports no additional complaints Physical exam (Primary Care) Vital Signs: Last Vital Signs Pulse 79 05/28/24 07:35 BP 130/84 05/28/24 07:35 Pulse Ox 96 05/28/24 07:35 Oxygen Delivery Method Room Air 05/28/24 07:35 BMI result Body Mass Index 31.6 Tobacco/Smoking Status: Tobacco use Status Tobacco use date assessed 05/28/24 05/28/24 07:40 Patient Tobacco Use Status Never used Tobacco 05/28/24 07:40 e-Cigarette/Vaping Use Never Used 05/28/24 07:40 PHQ-9: PHQ-9 Score PHQ-9: Total score 0 05/28/24 08:15 Depression Screening Interpretation: Negative Thrive Assessment: Date of Thrive Assessment Date Thrive assessed 11/30/23 05/28/24 07:40 Currently or been in a relationship where the following occur: I choose not to answer Const General: no acute distress HENMT Head: Yes normal to inspection Face and sinus: Yes normal facial exam Throat: Yes posterior oropharynx normal Neck Neck: Yes supple Resp Effort & Inspection: normal respiratory effort Auscultation: clear to auscultation bilaterally Cardio Rhythm: regular rhythm Heart sounds: S1 normal heart sound present and S2 normal heart sound present GI Inspection: Yes normal to inspection Palpation (GI): Soft to palpation Percussion: Yes normal to percussion Assessment and Plan Assessment & Plan (1) Hyperlipidemia: Code(s): E78.5 - Hyperlipidemia, unspecified Plan: cont low cholesterol diet (2) Dysplastic nevus: Comment: on R forearm Code(s): D23.9 - Other benign neoplasm of skin, unspecified Plan: refer to dermatology (3) HTN (hypertension): Code(s): I10 - Essential (primary) hypertension Plan: increase Metoprolol to 50 mg, cont Olmesartan, f/u 1 month Orders: Referrals Dermatology Referral D23.9 - Other benign neoplasm of skin, unspecified Medications: New metoprolol succinate ER 50 mg PO DAILY 90 tabs 0RF Discontinued metoprolol succinate ER Discontinued Reason: Doctor's Order 25 mg PO DAILY 90 tabs 2RF Coding Level of Care Code Est Pt Level 4 (55243) Diagnoses Hyperlipidemia E78.5 Dysplastic nevus D23.9 HTN (hypertension) I10 Additional Codes HENRI-7 Assessment Billing - HENRI-7 Assessment Tool: HENRI-7 Assessment [id number] ([id number])
[2024-05-28 07:35] VITALS: BP 130/84; PULSE 79; O2SAT 96; BMI 31.6
== END 2024-05-28 11:20 | disposition home or self-care (01) ==
PROVIDERS: PCP Internal Medicine; Visit Provider Internal Medicine
DX: E78.5 Hyperlipidemia, unspecified (principal); D23.9 Other benign neoplasm of skin, unspecified; I10 Essential (primary) hypertension
CPT/HCPCS: 99214

== ENCOUNTER 2024-08-01 08:08 | Outpatient (AMB) | payer OTHER, SELFPAY ==
[2024-08-01 08:13] VITALS: BP 138/88; PULSE 83; O2SAT 96; BMI 31.7
--- NOTE | 2024-08-01 08:13 | MHC.PC.OV ---
Vital Signs 08/01/24 08:13 Height 5 ft 10.8 in Weight 226 lb BMI 31.7 BP 138/88 Blood Pressure Location Rt brachial Position Sitting Pulse 83 Pulse Source Pulse Oximeter Pulse Oximetry (%) 96 Oxygen Delivery Method Room Air Intake Visit Reasons: 2 month follow up Intake Note: Pt is here today for 2 months follow up visit on BP. Allergies olmesartan Allergy (Intermediate, Verified 08/01/24 08:55) chest burning amoxicillin or augmentin Allergy (Unknown, Uncoded 08/01/24 08:15) Rash Medication List - Last Reconciled 08/01/24 by Krystin Barajas MD metoprolol succinate ER 25 mg PO DAILY Tobacco use date assessed: 08/01/24 Dental Screening Dental Screen Date: 05/28/24 HPI 2 month follow up HPI Details Patient presents for the follow-up. He developed sensation of chest pressure palpitations blurred vision after increasing the dose of metoprolol to 50 mg and olmesartan to 40 mg a day. His blood pressure was elevated despite taking higher doses of medications. Patient has stopped taking both medications about 2 weeks ago and is feeling better. The chest pressure and burning has been less frequent up to twice a day occasionally in minute clerk, lasting up to 2 hours. Patient denies nausea vomiting diaphoresis associated with the symptoms. Patient rides bike to work every day and denies palpitations or chest pain while physically active. 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 Cognitive needs: No Hearing needs: No Vision needs: No Questionnaire Thrive Questionnaire Date Thrive assessed: 05/21/24 I am a: Patient What is your living situation today?: I choose not to answer this question Within the past 12 months, did the food you bought not last and you didn't have the money to get more?: I choose not to answer this question Within the past 12 months, did you worry whether your food would run out before you got money to buy more?: I choose not to answer this question Do you have trouble paying for medicines?: I choose not to answer this question Do you have trouble getting transportation to medical appointments?: I choose not to answer this question Do you have trouble paying your heating and electricity bill?: I choose not to answer this question Do you have trouble taking care of your child, family member or friend?: I choose not to answer this question Do you have trouble with day-to-day activities such as bathing, preparing meals, shopping, managing finances, etc.?: I choose not to answer this question Are you currently unemployed and looking for a job?: I choose not to answer this question Are you interested in more education?: I choose not to answer this question Please select the resources that you would like help with: None Currently or been in a relationship where the following occur: I choose not to answer THRIVE Score: 0 HENRI-7 AMB Questionnaire HENRI-7 Date HENRI - 7 assessed: 05/28/24 Source: Developed by Drs. Jaylan Whiteside, Jany Bartlett, Arnol Good and colleagues, with an educational greg from [employer]. Review of Systems Const All systems reviewed & are unremarkable except as noted in HPI and below Eyes Reports no additional complaints ENT Reports no additional complaints Card Reports no additional complaints Resp Reports no additional complaints GI Reports no additional complaints Reports no additional complaints Physical exam (Primary Care) Vital Signs: Last Vital Signs Pulse 83 08/01/24 08:13 Pulse Ox 96 08/01/24 08:13 Oxygen Delivery Method Room Air 08/01/24 08:13 BMI result Body Mass Index 31.7 Tobacco/Smoking Status: Tobacco use Status Tobacco use date assessed 08/01/24 08/01/24 08:18 Patient Tobacco Use Status Never used Tobacco 08/01/24 08:13 e-Cigarette/Vaping Use Never Used 08/01/24 08:13 Thrive Assessment: Date of Thrive Assessment Date Thrive assessed 05/21/24 08/01/24 08:13 Currently or been in a relationship where the following occur: I choose not to answer Const General: no acute distress HENMT Face and sinus: Yes normal facial exam Eyes General: appearance normal, both eyes and all related structures Resp Effort & Inspection: normal respiratory effort Auscultation: clear to auscultation bilaterally Cardio Rhythm: regular rhythm Heart sounds: S1 normal heart sound present and S2 normal heart sound present GI Inspection: Yes normal to inspection Palpation (GI): Soft to palpation Percussion: Yes normal to percussion Coding Level of Care Code Est Pt Level 3 (07138) Diagnoses Angina at rest I20.89 Arrhythmia I49.9 Hyperlipidemia E78.5 Assessment & Plan Assessment & Plan (1) Angina at rest: Code(s): I20.89 - Other forms of angina pectoris Category: Medical Plan: EKG showed normal sinus rhythm no ST-T changes. Patient will be referred for nuclear stress test to evaluate for angina. Metoprolol 25 mg daily will be restarted. Patient will follow-up after stress test. (2) Arrhythmia: Comment: Frequent PVCs but no runs on a 3 day Holter 01/29, improved on metoprolol Code(s): I49.9 - Cardiac arrhythmia, unspecified Category: Medical Plan: Restart 25 mg of metformin (3) Hyperlipidemia: Comment: Diet controlled patient refused statins Code(s): E78.5 - Hyperlipidemia, unspecified Category: Medical Plan: Continue low-cholesterol diet Orders: Orders CA stress test Today I20.89 - Other forms of angina pectoris NM cardiolite stress test Today I20.89 - Other forms of angina pectoris AMB EKG-In Office Today I10 - Essential (primary) hypertension, I20.89 - Other forms of angina pectoris Medications: New metoprolol succinate ER 25 mg PO DAILY 30 tabs 3RF Discontinued metoprolol succinate ER Discontinued Reason: Doctor's Order 50 mg PO DAILY 90 tabs 0RF olmesartan Discontinued Reason: Doctor's Order 40 mg PO DAILY 90 tabs 1RF
== END 2024-08-01 10:09 | disposition home or self-care (01) ==
PROVIDERS: PCP Internal Medicine; Visit Provider Internal Medicine
DX: I20.89 Other forms of angina pectoris (principal); I49.9 Cardiac arrhythmia, unspecified; E78.5 Hyperlipidemia, unspecified

== ENCOUNTER → 2024-08-01 08:08 | Outpatient (BNVA) | payer OTHER, SELFPAY | PROVIDERS: PCP Internal Medicine; Visit Provider Internal Medicine | DX: I20.89 Other forms of angina pectoris (principal); I49.9 Cardiac arrhythmia, unspecified; E78.5 Hyperlipidemia, unspecified | CPT/HCPCS: 99212 ==

== ENCOUNTER → 2024-08-19 07:52 | Outpatient (REF) | payer OTHER, SELFPAY ==
--- NOTE | ~2024-08-19 | NM_ITS ---
EXERCISE MYOCARDIAL PERFUSION STUDY INDICATION: Angina to evaluate for myocardial ischemia TECHNIQUE: The patient was brought in for an exercise perfusion study on 08/19/2024. Patient performed exercise as per Fredis protocol and was injected 35 mCi of sestamibi once target heart rate was achieved. Images were obtained using the SPECT gamma camera interlaced with the gating device. Images were obtained in supine position. Resting perfusion study was performed on 08/20/2024. Patient was administered 35 mCi of sestamibi intravenously at rest. Images were then obtained in supine position. Images obtained without without CT attenuation. Total DLP 113 mGy-cm. Images were processed with the software and compared side to side in short axis, horizontal long axis and vertical long axis views. FINDINGS: Raw images were reviewed The stress perfusion study showed nonattenuation mildly reduced uptake in the basal inferior wall of the myocardium. Remainder of the LV myocardium. Attenuated corrected images show normal uptake of radiotracer in all segments of the LV myocardium. The gated study shows normal LV systolic function with calculated LVEF of 63%. LV cavity is normal in size. The gated study shows normal systolic wall thickening and contraction of segments. Resting study shows no change in perfusion pattern compared to stress perfusion study. Gating at rest reveals normal systolic wall motion with ejection fraction at 61%. The findings are consistent with normal myocardial perfusion. NM/NM cardiolite stress test IMPRESSION: 1. Myocardial perfusion imaging study shows normal myocardial perfusion. 2. Gated LVEF is 63%. 3. Transient ischemic dilatation not present. EKG revealed borderline changes of ischemia. Electronically signed by: Jarad Carballo MD 08/20/2024 03:36 PM [facility]
--- NOTE | 2024-08-19 08:01 | CA_ITS ---
Acquisition Time: 2024-08-19 08:09:21 Total Exercise Time: 00:06:32 Test Indications: Chest Discomfort PVC'S Medications: METOPROLOL Protocol: FREDIS Max HR: 166 BPM 97% of Pred: 171 BPM Max BP: 194/086 mmHG Max Work Load: 7.8 METS Exercise Stress Test with exercise 6 mins 32 secs of Fredis Protocol, achieving 88% MPHR, without any anginal symptoms, with isolated PVCs, with BP that eduin to 194/86 with exercise (pt didnot take his Metoprolol). Borderline EKG changes in the inferior leads. Nuclear Images pending. BP improved in recovery, took his am Metoprolol dose post exercise. Test reviewed with Dr. Looney. Referred By: Krystin Barajas Overread By: TEE BAILON
== END ==
LOC: HO.CARD 07:52
PROVIDERS: PCP Internal Medicine; Visit Provider Internal Medicine
DX: I20.89 Other forms of angina pectoris (principal)
CPT/HCPCS: 78452; 93017; A9500

== ENCOUNTER → 2024-08-19 08:01 | Outpatient (BNV) | payer OTHER, SELFPAY | PROVIDERS: PCP Internal Medicine; Visit Provider Nurse Practitioner Family | DX: I49.3 Ventricular premature depolarization (principal) | CPT/HCPCS: 78452; 93016; 93018 ==

== ENCOUNTER 2025-09-11 08:17 | Outpatient (AMB) | payer OTHER, SELFPAY ==
[2025-09-11 08:30] VITALS: BP 145/95; PULSE 73; RESP 17; O2SAT 100; BMI 33.4
--- NOTE | 2025-09-11 08:30 | A.OFFPC_ITS ---
Vital Signs 09/11/25 08:30 Height 5 ft 10.8 in Weight 238 lb BMI 33.4 BP 145/95 H Blood Pressure Location Rt brachial Position Sitting Respiration 17 Pulse 73 Pulse Source Pulse Oximeter Pulse Oximetry (%) 100 Oxygen Delivery Method Room Air Intake Visit Reasons: PE Intake Note: Pt is here today for PE. Allergies olmesartan Allergy (Intermediate, Verified 09/11/25 08:30) chest burning amoxicillin or augmentin Allergy (Unknown, Uncoded 09/11/25 08:30) Rash Tobacco use date assessed: 09/11/25 Dental Screening Dental Screen Date: 09/11/25 Did you have a dental visit in the last 12 months?: Yes Did you have a dental problem in the last 6 months where you did not have access to dental care?: No Was dental information given to patient?: Patient has dentist HPI PE HPI Details Patient presents for a physical. He reports elevated blood pressure at home for the last few months. Patient has been taking metoprolol only because he could not tolerate olmesartan in the past. He denies chest pain, dyspnea on exertion, headaches. 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 1. Little interest or pleasure in doing things: not at all 2. Feeling down, depressed, or hopeless: not at all 3. Trouble falling or staying asleep, or sleeping too much: not at all 4. Feeling tired or having little energy: not at all 5. Poor appetite or overeating: not at all 6. Feeling bad about yourself - or that you are a failure or have let yourself or your family down: not at all 7. Trouble concentrating on things, such as reading the newspaper or watching television: not at all 8. Moving or speaking so slowly that other people could have noticed. Or the opposite - being so fidgety or restless that you have been moving around a lot more than usual: not at all 9. Thoughts that you would be better off or of hurting yourself in some way: not at all Total score: 0 Depression Screening Interpretation: Negative Depression Screening Done: Yes Source: Developed by Drs. Jaylan Whiteside, Jany Bartlett, Arnol Good and colleagues, with an educational greg from [employer]. Thrive Questionnaire Date Thrive assessed: 09/11/25 I am a: Patient What is your living situation today?: I have a steady place to live Within the past 12 months, did the food you bought not last and you didn't have the money to get more?: I choose not to answer this question Within the past 12 months, did you worry whether your food would run out before you got money to buy more?: I choose not to answer this question Do you have trouble paying for medicines?: I choose not to answer this question Do you have trouble getting transportation to medical appointments?: I choose not to answer this question Do you have trouble paying your heating and electricity bill?: I choose not to answer this question Do you have trouble taking care of your child, family member or friend?: I choose not to answer this question Do you have trouble with day-to-day activities such as bathing, preparing meals, shopping, managing finances, etc.?: I choose not to answer this question Are you currently unemployed and looking for a job?: No Are you interested in more education?: No Please select the resources that you would like help with: None Currently or been in a relationship where the following occur: I choose not to answer THRIVE Score: 0 AUDIT C Alcohol Use Questionnaire (AUDIT-C) 1. How often do you have a drink containing alcohol?: Never Total Score: 0 HENRI-7 AMB Questionnaire HENRI-7 Date HENRI - 7 assessed: 09/11/25 Feeling nervous, anxious, or on edge: 0 = Not at all Not being able to stop or control worryin = Not at all Worrying too much about different things: 0 = Not at all Trouble relaxin = Not at all Being so restless that it is hard to sit still: 0 = Not at all Becoming easily annoyed or irritable: 0 = Not at all Feeling afraid as if something awful might happen: 0 = Not at all Total HENRI-7 score (0-4 normal; 5-9 mild; 10-14 moderate; 15-21 severe): 0 Source: Developed by Drs. Jaylan Whiteside, Jany Bartlett, Arnol Good and colleagues, with an educational greg from [employer]. Review of Systems Const All systems reviewed & are unremarkable except as noted in HPI and below Eyes Reports no additional complaints ENT Reports no additional complaints Resp Reports no additional complaints GI Reports no additional complaints Reports no additional complaints Physical exam (Primary Care) Vital Signs: Last Vital Signs Pulse 73 09/11/25 08:30 Resp 17 09/11/25 08:30 Pulse Ox 100 09/11/25 08:30 Oxygen Delivery Method Room Air 09/11/25 08:30 BMI result Body Mass Index 33.4 Tobacco/Smoking Status: Tobacco use Status Tobacco use date assessed 09/11/25 09/11/25 08:31 Patient Tobacco Use Status Never used Tobacco 09/11/25 08:31 e-Cigarette/Vaping Use Never Used 09/11/25 08:31 PHQ-9: PHQ-9 Score PHQ-9: Total score 0 09/11/25 08:31 Depression Screening Interpretation: Negative Thrive Assessment: Date of Thrive Assessment Date Thrive assessed 09/11/25 09/11/25 08:31 Currently or been in a relationship where the following occur: I choose not to answer Const General: no acute distress HENMT Head: Yes normal to inspection Ears: TM's normal bilaterally Mouth: Normal oral and palatal mucosa present Eyes General: appearance normal, both eyes and all related structures Neck Neck: Yes no lymphadenopathy and Yes supple Resp Effort & Inspection: normal respiratory effort Auscultation: clear to auscultation bilaterally Cardio Rhythm: regular rhythm Heart sounds: S1 normal heart sound present and S2 normal heart sound present GI Inspection: Yes normal to inspection Palpation (GI): Soft to palpation Percussion: Yes normal to percussion Auscultation: normal bowel sounds Coding Level of Care Code Est Pt Prev Care 40-64y(29365) Diagnoses HTN (hypertension) I10 Arrhythmia I49.9 Hyperlipidemia E78.5 Annual physical exam Z00.00 Assessment & Plan Assessment & Plan (1) HTN (hypertension): Code(s): I10 - Essential (primary) hypertension Category: Medical Plan: Regular physical activity decrease caloric intake weight lost and low-sodium diet discussed with the patient. Amlodipine with benazepril 5/10 mg will be started. Patient will have fasting blood work in 1 week and follow-up in 1 month. He was advised to check his blood pressure at home record readings and bring it for his next visit (2) Arrhythmia: Comment: Frequent PVCs but no runs on a 3 day Holter 01/29, improved on metoprolol. Negative nuclear stress test 08/2024 Code(s): I49.9 - Cardiac arrhythmia, unspecified Category: Medical Plan: Continue metoprolol (3) Hyperlipidemia: Comment: Diet controlled patient refused statins Code(s): E78.5 - Hyperlipidemia, unspecified Category: Medical Plan: Low-cholesterol diet regular physical activity weight loss discussed with the patient check lipid profile (4) Annual physical exam: Comment: Negative Cologuard April 2023 Code(s): Z00.00 - Encounter for general adult medical examination without abnormal findings Category: Medical Plan: Balanced diet regular exercise weight loss discussed with the patient. He had negative Cologuard in 04/2023 Medications: New amlodipine-benazepril 5-10 mg 1 cap PO DAILY 90 caps 0RF
== END 2025-09-11 09:14 | disposition home or self-care (01) ==
LOC: HO.HMCC 08:18
PROVIDERS: PCP Internal Medicine; Visit Provider Internal Medicine
DX: Z00.00 Encounter for general adult medical examination without abnormal findings (principal); I10 Essential (primary) hypertension; I49.9 Cardiac arrhythmia, unspecified; E78.5 Hyperlipidemia, unspecified

== ENCOUNTER → 2025-09-11 08:17 | Outpatient (BNVA) | payer OTHER, SELFPAY | PROVIDERS: PCP Internal Medicine; Visit Provider Internal Medicine | DX: Z00.00 Encounter for general adult medical examination without abnormal findings (principal); I10 Essential (primary) hypertension; I49.9 Cardiac arrhythmia, unspecified; E78.5 Hyperlipidemia, unspecified | CPT/HCPCS: 99396 ==

== ENCOUNTER 2025-09-30 07:34 | Outpatient (REF) | payer OTHER, SELFPAY ==
[2025-09-30 10:15] LABS: Appearance Urine Clear; Glucose Urine UA Negative (Negative); PH 6.0 (5.0-9.0); Specific Gravity - Urine 1.015 (1.005-1.025)
[2025-09-30 10:41] LABS: MANUAL DIFF FLAG NO
[2025-09-30 10:49] LABS: Hematocrit 47.7 % (42.0-52.0); Hemoglobin 15.8 g/dl (14.0-18.0); Imm Gran Abs Auto 0.02 X10*3/uL (0.00-0.03); Imm Gran Pct Auto 0.3 % (0.0-0.4); Lymphocytes Absolute Auto 2.6 X10*3/uL (1.2-4.9); Mean Corpuscular HGB Conc 33.1 g/dl (31.0-36.0); Mean Corpuscular Hemoglobin 29.4 pg (27.0-33.0); Mean Corpuscular Volume 88.7 fL (80.0-98.0); NRBC Abs Auto 0.000 X10*3/uL (0.0-0.012); NRBC Pct Auto 0.0 /100WBC (0.0-0.2); Platelet Count 248 X10*3/uL (160-400); Red Blood Count 5.38 X10*6/uL (4.60-5.80); White Blood Count 5.7 X10*3/uL (4.8-10.8)
[2025-09-30 11:03] LABS: Alanine Aminotransferase 48 U/L (0-40); Albumin Level 4.9 g/dL (3.5-5.0); Alkaline Phosphatase 69 U/L (39-117); Anion Gap 14 (12-20); Aspartate Amino Transferase 37 U/L (5-37); Blood Urea Nitrogen 17 mg/dL (9-16); Calcium 9.6 mg/dL (8.4-10.2); Carbon Dioxide 26 mmol/L (22-29); Chloride 105 mmol/L (96-108); Cholesterol 221 mg/dL (<200); Estimated Glomerular Filt Rate > 60; HDL Cholesterol 44 mg/dL (>40); Potassium 3.9 mmol/L (3.3-5.1); Sodium 141 mmol/L (135-145); Total Protein 8.1 g/dL (6.5-8.0); Triglycerides 159 mg/dL (<150)
[2025-09-30 11:25] LABS: PSA,Total (Free>4and<10) 0.51 ng/mL (0.00-4.00)
== END 2025-09-30 07:35 | disposition home or self-care (01) ==
LOC: HO.HMGCLDS 07:34
PROVIDERS: PCP Internal Medicine; Visit Provider Internal Medicine
DX: I10 Essential (primary) hypertension (principal); E78.5 Hyperlipidemia, unspecified; I49.9 Cardiac arrhythmia, unspecified
CPT/HCPCS: 36415; 80053; 80061; 81001; 83695; 83721; 84153; 85025